=== PATIENT | female | born 1960 | race Caucasian/White ===

== ENCOUNTER 2021-07-21 11:51 | Outpatient (REF) | payer BC, SELFPAY ==
--- NOTE | 2021-07-21 09:15 | PAPFT_PTH ---
PATIENT: Fannie Caro LOC: [facility] U#:[id number] AGE/SX: 61/F ROOM: RE07/21/[address]: Michelle Biswas NP : 1960 BED: DIS: 07/21/2021 SPEC #: [id number] RECD: 07/21/21 12:50 STATUS: PABLO REShruthi #: [id number] HOOD: 07/21/21 09:[address]: Michelle Biswas NP DEPT: [facility] Cytology RECD BY: Harper Motta Tissues: 1 - CX/ENDOCX FOR PAP SMEARS Procedures: PAP THIN PREP/UVM Screening HPV DNA PROBE Comments: [id number]
== END 2021-07-21 11:52 | disposition home or self-care (01) ==
LOC: LBN 11:51
PROVIDERS: Visit Provider Nurse Practitioner Women's Health
DX: Z12.4 Encounter for screening for malignant neoplasm of cervix (principal); Z11.51 Encounter for screening for human papillomavirus (HPV)
CPT/HCPCS: 88142; 87624

== ENCOUNTER 2022-10-06 01:16 | Outpatient (CLI) | payer BC, SELFPAY ==
--- NOTE | 2022-10-06 08:26 | DI.MAMMO_ITS ---
Exam(s) MAMMO SCREENING EXAM: MAMMO SCREENING CLINICAL HISTORY: screening,Z12.39 TECHNIQUE: Bilateral full field digital CC and MLO mammographic images were obtained with 3D tomosyn thesis and utilizing computer aided detection (CAD). COMPARISON: Available for comparison. FINDINGS: Masses/Architectural Distortion: There is a new ovoid density in the central right breast appreciated on the MLO view approximately 7 cm from the nipple. There is also an ovoid density seen in the cent ral left breast on the MLO view approximately 7 cm from the nipple. Microcalcifications: No suspicious pleomorphic-type are seen. Skin Thickening/Nipple Retraction: None. IMPRESSION: 1. New nodular areas in the central breast on the MLO views. 2. These area should be further evaluated with spot compression views and bilateral breast ultrasound . BI-RADS Category 0 - Assessment Incomplete: Need additional imaging evaluation Breast Density - Category B - Scattered areas of fibroglandular density Breast density category C or D implies that the patient has dense breast tissue. Dense breast tissue is very common and is not abnormal but dense breast tissue can make it harder to find cancer on a ma mmogram. Also, dense breast tissue may increase their breast cancer risk. This information about the result of the mammogram report was provided to the patient to raise their awareness. Use this report when you speak with the patient about their risks for breast cancer, which includes their family hist ory. At that time, you may recommend for more screening tests (Ultrasound or MRI) as they might be us eful based on their risk. A negative radiographic report should not delay biopsy if a dominant or clinically suspicious mass is present. Up to ten percent of cancers are not identified on mammography. A negative report may reinforce clinical impression. Adenosis and dense breasts may obscure an underlying neoplasm. False positive reports average 6 to 10%. Patient will receive a letter notifying them of these results.
== END 2022-10-06 01:36 ==
PROVIDERS: Visit Provider Nurse Practitioner Women's Health
DX: Z12.31 Encounter for screening mammogram for malignant neoplasm of breast (principal); R92.8 Other abnormal and inconclusive findings on diagnostic imaging of breast
CPT/HCPCS: 77063; 77067

== ENCOUNTER 2022-10-06 02:32 | Outpatient (CLI) | payer BC, SELFPAY ==
[2022-10-06 09:03] LABS: HCT 42.7 % (36.0-46.0); MCH 32.9 pg (27.0-33.0); MCHC 35.1 % (32.0-36.0); MCV 94 fL (80-95); Platelet Count 160 10^3/uL (130-400); RBC 4.56 10^6/uL (3.93-5.22); RDW 12.8 % (11.7-14.6); RDW-SD 43.9 fL; WBC 5.12 10^3/uL (4.4-10.8)
[2022-10-06 09:37] LABS: ALT 23 U/L (14-59); AST 17 U/L (15-37); Albumin 3.9 g/dL (3.4-5.0); Alkaline Phosphatase 137 U/L (46-116); Anion Gap 5.7 mmol/L (3-11); BUN 11 mg/dL (7-18); Bilirubin, Total 0.8 mg/dL (0.2-1.0); CO2 31.3 mmol/L (21.0-32.0); CREATININE 0.6 mg/dL (0.55-1.02); Calcium 9.1 mg/dL (8.5-10.1); Calculated LDL 134 mg/dL (<100); Chloride 108 mmol/L (98-107); Cholesterol 235 mg/dL (<200); Estimated GFR 102.69 (mL/min/1.73m2); Glucose 104 mg/dL (74-106); HDL Cholesterol 45 mg/dL (40-60); Potassium 3.7 mmol/L (3.5-5.1); Sodium 145 mmol/L (136-145); Total Protein 6.9 g/dL (6.4-8.2); Triglyceride 281 mg/dL (<150)
[2022-10-06 09:59] LABS: Vitamin D 25 Total 43.4 ng/mL (30-100)
== END 2022-10-06 02:33 | disposition home or self-care (01) ==
LOC: LBO 02:32
PROVIDERS: Visit Provider Nurse Practitioner Women's Health
DX: E55.9 Vitamin D deficiency, unspecified (principal); E78.00 Pure hypercholesterolemia, unspecified; F32.89 Other specified depressive episodes
CPT/HCPCS: 36415; 80053; 80061; 82306; 85027

== ENCOUNTER 2022-10-12 01:28 | Outpatient (CLI) | payer BC, SELFPAY ==
--- NOTE | 2022-10-12 08:45 | DI.MAMMO_ITS ---
Exam(s) US BREAST LT COMPLETE US BREAST RT COMPLETE MG MAMMO SCREEN CALL BACK BI EXAM: MG MAMMO SCREEN CALL BACK BI AND BILATERAL COMPLETE BREAST ULTRASOUND CLINICAL HISTORY: BILATERAL OVOID DENSITIES IN CENTRAL BREASTS 7 CM FROM NIPPLE. TECHNIQUE: BILATERAL spot mammographic images obtained with 3D tomosynthesisand utilizing computer a ided detection (CAD). . Complete BILATERAL breast Ultrasound was also performed, including all 4 quadrants, the retroareolar region, and the ipsilateral axilla. COMPARISON: Prior mammograms were reviewed. This additional imaging was performed due to findings described on the recent screening mammogram of 10/06/2022. FINDINGS: DIAGNOSTIC BILATERAL MAMMOGRAM: Additional bilateral mammographic views performed todaythe right breast finding less concerning. The additional left breast spot views do not dissipate the findings described on the recent mammogram. COMPLETE BILATERAL BREAST ULTRASOUND: Ultrasound performed today reveals no significant focal findings in all 4 quadrants of the right [address], implying that the finding seen on the mammogram is probably a benign intramammary lymph node. Left breast ultrasound reveals solitary finding which is a benign appearing 3 millimeter microcyst at the 7 o'clock position. This may correspond to 1 of the 2 findings on the mammogram. There are no other focal ultrasound findings in all 4 quadrants. The other finding may therefore be a benign intr amammary lymph node. Scanning of both axillary regions reveals no significant adenopathy. IMPRESSION: 1. Benign-appearing bilateral findings as described above. Appropriate follow-up as discussed by myself with the patient today is repeat bilateral mammogram and bilateral ultrasound in 6 months, with earlier imaging if a self detected breast change is noted.. The patient was informed of these findings and recommendations by myself prior to leaving the departm ent today. BI-RADS Category 3 - 6 month - Probably Benign Finding: Recommend follow-up mammography in 6 months Breast Density - Category B - Scattered areas of fibroglandular density Breast density Category C or D implies that the patient has dense breast tissue. Dense breast tissue can make it harder to find cancer on a mammogram. Dense breast tissue is also associated with an incr eased risk of breast cancer. This information about the result of the mammogram report was provided to the patient to raise their awareness. Use this report when you speak with the patient about their risks for breast cancer, which includes their family history. At that time, you may recommend additional screening tests (Ultrasoun d or MRI) as these tests may add significant information. A negative radiographic report should not delay biopsy if a dominant or clinically suspicious mass is present. Up to ten percent of cancers are not identified on mammography. A negative report may reinforce clinical impression. Adenosis and dense breasts may obscure an underlying neoplasm. False positive reports average 6 to 10%. Patient will receive a letter notifying them of these results.
== END 2022-10-12 01:48 ==
PROVIDERS: Visit Provider Nurse Practitioner Women's Health
DX: Z12.31 Encounter for screening mammogram for malignant neoplasm of breast (principal); N60.02 Solitary cyst of left breast
CPT/HCPCS: 76642; 77063; 77067

== ENCOUNTER → 2023-04-12 01:21 | Outpatient (CLI) | payer BC, SELFPAY ==
--- NOTE | 2023-04-12 08:30 | DI.US_ITS ---
Exam(s) US BREAST LT COMPLETE US BREAST RT COMPLETE MG MAMMO DIAGNOSTIC BI EXAM: MG MAMMO DIAGNOSTIC BI and complete bilateral ultrasound CLINICAL HISTORY: 6 month f/u, F/U ABNL MAMMO CHANDNI, R92.8. TECHNIQUE: Craniocaudal and mediolateral oblique Full Field Digital Mammography views of the bilater al breast with Computer Aided Diagnosis followed by Tomosynthesis and bilateral breast ultrasound. COMPARISON: Comparison is made with prior examinations. FINDINGS: Mammography/Tomosynthesis: Masses/Architectural Distortion: No new nodules are seen. No new areas of architectural distortion a re seen. Microcalcifictions: No suspicious pleomorphic-type are seen. Skin Thickening/Nipple Retraction: None. Complete bilateral breast US: Echotexture: Normal appearance of the glandular tissue. Shadowing: No suspicious foci. Cyst: There is a stable 3 mm cyst at the 7 o'clock position of the left breast 4 cm from the nipple. No suspicious cystic or solid lesions are seen in the right breast. Solid lesions: None seen. Ductal dilation: None. IMPRESSION: 1. No evidence of malignancy is noted. 2. Unless there is more urgent need, follow-up screening mammography is recommended, as per [employer] [employer] guidelines. 3. The findings were discussed with the patient on the date of the examination. BI-RADS Category 2 - Benign Findings Breast Density - Category B - Scattered areas of fibroglandular density Breast density Category C or D implies that the patient has dense breast tissue. Dense breast tissue can make it harder to find cancer on a mammogram. Dense breast tissue is also associated with an incr eased risk of breast cancer. This information about the result of the mammogram report was provided to the patient to raise their awareness. Use this report when you speak with the patient about their risks for breast cancer, which includes their family history. At that time, you may recommend additional screening tests (Ultrasoun d or MRI) as these tests may add significant information. A negative radiographic report should not delay biopsy if a dominant or clinically suspicious mass is present. Up to ten percent of cancers are not identified on mammography. A negative report may reinforce clinical impression. Adenosis and dense breasts may obscure an underlying neoplasm. False positive reports average 6 to 10%. Patient will receive a letter notifying them of these results.
== END ==
PROVIDERS: Visit Provider Nurse Practitioner Women's Health
DX: R92.8 Other abnormal and inconclusive findings on diagnostic imaging of breast (principal); Z12.31 Encounter for screening mammogram for malignant neoplasm of breast
CPT/HCPCS: 76642; 77062; 77066; G0279

== ENCOUNTER 2023-11-10 08:20 | Day surgery (SDC) | payer BC, SELFPAY ==
--- NOTE | 2023-11-09 18:21 | W.ANESPRE ---
General Info Date of Service Date Performed: 11/10/23 Height: 5 ft 6 in Weight: 85.729 kg Body Mass Index (BMI): 30.4 Surgical Procedure: Operation Date: 11/10/23 09:50 Proposed Procedure Side Surgeon p Tello Bess MD Meds Allergies and Home Medications Allergies Allergy/AdvReac Type Severity Reaction Status Date / Time latex Allergy Mild Skin Rash Verified 11/10/23 08:31 Home Medication Medication Instructions Recorded cholecalciferol (vitamin D3) 125 125 mcg PO DAILY 07/21/21 mcg (5,000 unit) capsule paroxetine HCl 20 mg tablet (Paxil) 20 mg PO DAILY 07/21/21 Current Visit Medications: Current Medications Generic Name Dose Route Start Last Admin Trade Name Freq PRN Reason Stop Dose Admin Ringer's Solution 1,000 mls @ 80 mls/hr 11/10/23 06:00 IV 12/09/23 23:59 INFUSION HEAVEN IV Miscellaneous Supplies 1 each 11/10/23 06:00 Iv Access IV 12/09/23 23:59 DIRECTED HEAVEN Sodium Chloride 0 ml 11/10/23 06:00 Normal Saline Flush 10 Ml Syr IV 12/09/23 23:59 PRN PRN Sodium Chloride 0 ml 11/10/23 06:00 Normal Saline 10 Ml Vial IJ 12/09/23 23:59 DIRECTED PRN Sterile Water 0 ml 11/10/23 06:00 Water,Injection,Sterile 10 Ml Vial IJ 12/09/23 23:59 DIRECTED PRN PFSH Active Problems Active Problems: Problem Status Onset Code Vitamin D deficiency E55.9 Depression F32.A Medical History Medical History High cholesterol Surgical History Surgical History Recent surgical procedure on lower extremity s/p fall, L lower leg reconstruction- metal and pins in situ S/P abdominoplasty H/O lithotripsy History of back surgery Hx of tubal ligation S/P endometrial ablation Tobacco Smoking/Tobacco Use Status: Never Alcohol Alcohol Intake: never Substance Use Substance use: Never Substance use type: does not use Prental History History 2 Para 2 Hx # Term Pregnancies Multiple births Hx # Pregnancies Ectopic pregnancies AB induced Hx Number of Living Children AB spontaneous Vital Signs and Lab Results Vital Signs Most Recent Vital Signs in EMR: Temp Pulse Resp BP Pulse Ox 36.4 C L 72 16 124/85 97 11/10/23 08:32 11/10/23 08:32 11/10/23 08:32 11/10/23 08:32 11/10/23 08:32 Lab Results Blood Type / Crossmatch: No Data to Display Complete Blood Count: No Data to Display Complete Metabolic Panel: No Data to Display Liver Function Panel: No Data to Display Coagulation Panel: No Data to Display Cardiac Panel: No Data to Display Arterial Blood Gas: No Data to Display Venous Blood Gas: No Data to Display Pancreas Panel: No Data to Display Thyroid Panel: No Data to Display Infectious Disease: No Data to Display Blood Cultures: No Data to Display Toxicology Panel: No Data to Display Anesthesia Assessment and Plan Anesthesia History Personal History: No History of Anesthesia Complications Family History: No Family History of Anesthesia Complications Exercise Tolerance Exercise Tolerance: Metabolic Equivalents>4 Cardiac & Pulmonary Exam Cardiac Exam: Normal S1/S2 Heart Sounds Pulmonary Exam: Clear Bilateral Breath Sounds Implantable Cardiac Device Does patient have a Pacemaker or an ICD?: No Airway Exam Known Difficult Airway: No Mallampati Class: 3 Mouth Opening: Normal (> 3cm) Thyromental Distance: Greater than 3 cm Neck Range of Motion: Full ROM Neck Circumference: Normal Teeth Condition: Normal Dentition ASA Classification ASA Score: ASA 2 Emergency Case?: No NPO Status NPO Status: NPO Clears >2 hours, Solids >8 hours Anesthesia Plan Resuscitation Status: Full Code Anesthesia Technique: General Anesthesia Airway Planned: Natural Airway Monitors Used: Standard Monitors Preoperative Comments:: 63 yo female for colo. Sig PMHx: depression, discectomy (2003). never smoker.
--- NOTE | 2023-11-09 18:36 | W.PM.DSUDISC ---
Date of service: 11/10/23 Time of Service: 10:35 Discharge Plan Disposition Patient Disposition: Home Condition: Good Discharge Details Reason For Visit: screening colonoscopy Attending Provider: Lacho Bess Primary Care Provider: Veroniqeu Ornelas Home Meds and New Rx's Prescriptions: Continued paroxetine HCl [Paxil] 20 mg tablet 20 mg PO DAILY cholecalciferol (vitamin D3) 125 mcg (5,000 unit) capsule 125 mcg PO DAILY Discontinued bisacodyl [Dulcolax (bisacodyl)] 5 mg tablet,delayed release (DR/EC) 5 mg PO ONCE Qty: 4 0RF Rx Instructions: Take per colonoscopy instructions provided by ordering providers office polyethylene glycol 3350 17 gram/dose powder 17 g PO ONCE Qty: 238 0RF Rx Instructions: Take per colonoscopy instructions provided by ordering providers office Discharge Instructions Instructions: Colorectal Polyps (GEN) Additional Instructions: Fannie, we were able to complete your colonoscopy today without any difficulty at all. I did find 1 polyp. I removed it completely. Will take about a week or so for me to get the results of the polyp analysis, but once I have that information I will be in touch regarding recommendations for your next colonoscopy. If you have any questions in the meantime, please do not hesitate to call or ask at any point. 1. If tolerated, consume a soft, low fiber diet for 1-2 days. 2. Do not drive, drink alcohol, operate machinery, make critical decisions, or do activities that require coordination or balance for 24 hours. 3. Because air was put into your colon during the procedure, expelling air from your rectum (passing gas or farting) is normal. 4. You may not have a bowel movement for 1-3 days because of the colonoscopy prep. This is normal. 5. Go directly to the emergency room if you notice any of the following: Develop chills (warm to touch), or if you have a thermometer and your temperature is above 101 Difficulty breathing or difficultly swallowing Persistent vomiting Severe abdominal pain, other than gas cramps Severe chest pain Black, tarry stools Any bleeding ? exceeding one tablespoon 6. Call your physician if the site where your intravenous was started becomes red, swollen, painful, and warm to touch. 7. Your physician has reviewed your pre-procedure medications. Please continue to take those medications as previously ordered. You will be given specific information/education regarding any changes to your medications before leaving. Activity:: Activity as Tolerated Diet:: As Tolerated Discharge Orders Discharge Orders: Discharge Order (Routine); Ordered 11/09/23 Ordered By: Lacho Bess DS: Diagnosis Discharge Diagnosis (1) Encounter for screening colonoscopy: Status: Acute Asessment and Plan: Follow-up on polyp results
--- NOTE | 2023-11-09 18:37 | COLE_ITS ---
Date of service: 11/10/23 Time of Service: 10:36 Colonoscopy Report Date of procedure: 11/10/23 Pre-op diagnosis general: screening colonoscopy Post-op diagnosis procedure note: other (Cecal polyp) Procedure: colonoscopy with polypectomy Surgeon: Lacho Bess Anesthesia Type: General:No Airway Estimated blood loss (mL): 5 Pathology: other (0.5 cm cecal polyp) Complications: None Disposition: same day Indications: Fannie is 63 years old. She needs a screening colonoscopy Prep: Miralax/Dulcolax Procedure Start Time: 10:00 Procedure End Time: 10:25 Retraction Time: 15 Findings: 0.5 cm cecal polyp Procedure Description: After the induction of monitored anesthetic care, and with the patient in left lateral decubitus position, I began by performing an external anorectal exam.? Perineum and skin were normal, as was the anal verge.? There was no evidence of external hemorrhoids.? Next, I performed a digital rectal exam.? I did not appreciate any abnormal findings.? Next, I advanced a colonoscope into the rectal vault.? I performed retroflexion.? This appeared normal.? Using insufflation, I then advanced the colonoscope beyond the rectal folds and into the sigmoid colon before advancing towards the cecum.?The scope was noted to be in the cecum by identification of the ileocecal valve and appendiceal orifice.? A few centimeters away from the appendiceal orifice was a 0.5 cm slightly pedunculated polyp. This was removed with cold forceps with minimal bleeding. Within the ascending colon, I also saw what appeared to be an old colonoscopic tattoo. Several passes were made across this area, and the mucosa was carefully examined. I did not see any signs of any pathology here. I then began withdrawing the colonoscope using repeated irrigation as necessary for full evaluation of the colonic mucosa. ?Once the scope was withdrawn to the level of the rectum, great care was taken to examine portions of the rectal folds.? Finally, the scope was withdrawn and the patient was brought to the same-day surgery recovery unit as the anesthetic wore off. ?The findings and instructions were shared with the patient prior to discharge. [place] Bowel Prep [place] Bowel Prep Right Colon: 3 Left Colon: 3 Transverse Colon: 3 Total Score: 9
[2023-11-10 08:32] VITALS: BP 124/85; PULSE 72; RESP 16; TEMP 36.4; O2SAT 97
[2023-11-10] MEDS: Lactated Ringers 1,000 ML 80 ML IV (08:43)
[2023-11-10 09:29] VITALS: BMI 30.4
--- NOTE | 2023-11-10 10:14 | BOWEL_PTH ---
PATIENT: Fannie Caro LOC: [facility] U#:[id number] AGE/SX: 63/F ROOM: RE11/10/[address]: Lacho Bess MD : 1960 BED: DIS: 11/10/2023 SPEC #: [id number] RECD: 11/10/23 12:56 STATUS: PABLO REQ #: [id number] HOOD: 11/10/23 10:[address]: Lacho Bess DEPT: Surgical Specimen RECD BY: Harper Motta ENTERED: 11/10/23 12:56 SP TYPE: Bowel OTHR DR: Veronique Ornelas Tissues: 1 - BIOPSY BOWEL Procedures: GROSS AND MICRO LEVEL 4 Comments: [id number]
[2023-11-10 10:31] VITALS: BP 106/82; PULSE 73; RESP 16; TEMP 36.5; O2SAT 96
--- NOTE | 2023-11-10 10:39 | W.ANESPOSTOP ---
Postoperative Evaluation Date, Time and Location Date Performed: 11/10/23 Time Performed: 10:39 Patient Location: Day Surgery Unit Vital Signs Most Recent Imported Vital Signs: Most Recent Vital Signs Temp Pulse Resp BP Pulse Ox 36.5 C 73 16 106/82 96 11/10/23 10:31 11/10/23 10:31 11/10/23 10:31 11/10/23 10:31 11/10/23 10:31 Pain Score Most Recent Pain Score: Most Recent Pain Score Pain Level 0 11/10/23 10:31 Assessment Mental Status: Awake (Alert & Oriented to Patient Baseline) Airway and Respiratory Function: Patent airway with normal (patient baseline) respiratory exam Cardiovascular Function: Hemodynamically Stable Hydration Status: Adequately Hydrated Nausea & Vomiting: No Nausea or Vomiting Pain: Pt. Denies Any Pain Peripheral Nerve Block: Patient did not receive a nerve block
[2023-11-10 11:03] VITALS: BP 140/88; PULSE 65; RESP 16; TEMP 36.5; O2SAT 100
== END 2023-11-10 08:21 | disposition home or self-care (01) ==
LOC: SUR 08:20
PROVIDERS: PCP Legal Medicine; Visit Provider Surgery
PROC: 0DJD8ZZ Inspection of Lower Intestinal Tract, Via Natural or Artificial Opening Endoscopic (ICD-10-PCS; CPT 45378; principal; 2023-11-10 09:45)
DX: Z12.11 Encounter for screening for malignant neoplasm of colon (principal); D12.0 Benign neoplasm of cecum; F32.A Depression, unspecified
CPT/HCPCS: 45380; 88305; J2704